=== PATIENT | male | born 1955 | race Caucasian/White ===

== ENCOUNTER 2023-07-20 00:30 | Day surgery (SDC) | payer MEDICARE, BC, SELFPAY ==
[2023-06-22 14:21] VITALS: BMI 25.8
--- NOTE | 2023-07-16 10:01 | SUR.PREOP ---
Patient called regarding upcoming procedure. Reviewed preop instructions, appointment times, and procedure prep.
--- NOTE | 2023-07-19 15:17 | PM.HPGS ---
History of Present Illness History of Present Illness Consent: Risks, benefits, and alternatives have been discussed and questions answered. Patient agrees to proceed with procedure. Chief complaint: neoplasm screening Narrative: Tigre Nieves is a 67 year old male Referred for colon cancer screening Review of Systems Review of Systems: All systems reviewed & are unremarkable except as noted in HPI and below PMFSH Past Medical History Medical History Male erectile dysfunction, unspecified Family History Family History Sibling Patient's brother is in good health Mother Family history of Alzheimer's disease, Onset Age: 76 Patient's mother is Father Family history of diabetes mellitus in first degree relative Family history of coronary artery disease Social History Social History Smoking status: Never smoker Second hand tobacco smoke exposure: No Alcohol intake: current Drinks per week: 4 Alcohol use details: moderate Substance use: never Substance use type: does not use Lack of Transportation: No Lack of Food: Never True Current Housing: I Have Housing Concerned About Future Housing: No Difficulty Paying Gas/Electric Bills: No Difficulty Paying for Meds: No Currently Unemployed: No Education: Bachelor's Degree Difficulty w/ Childcare or Family Care: No Living arrangements: with family Spiritual care concerns: No Meds Home Medications and Allergies Home Medications Medication Instructions Recorded Confirmed Type aspirin 81 mg tablet,delayed 81 mg PO DAILY #30 tabs 01/29/20 07/20/23 Rx release (Adult Aspirin Regimen) multivitamin 1 tablet PO DAILY 02/17/23 07/20/23 History atorvastatin 10 mg tablet See Rx Instructions .Route 06/30/23 07/20/23 Rx .COMPLEX #90 tabs lisinopril 5 mg tablet See Rx Instructions .Route 06/30/23 07/20/23 Rx .COMPLEX #90 tabs sildenafil (pulm.hypertension) 20 See Rx Instructions PO DAILY PRN 07/07/23 07/20/23 Rx mg tablet Sexual Activity #30 tabs Allergies Allergy/AdvReac Type Severity Reaction Status Date / Time NKDA Allergy Unknown Unknown Uncoded 07/20/23 07:43 Exam Const: General: alert Orientation/consciousness: patient oriented x3 Resp: Auscultation: clear to auscultation bilaterally Cardio: Rhythm: regular rhythm GI: GI Palp: Yes Soft to palpation and No Tenderness to palpation present (GI) Neuro: General: patient oriented x3 Assessment and Plan Assessment and plan (1) Screening for colon cancer: Code(s): Z12.11 - Encounter for screening for malignant neoplasm of colon Status: Acute Assessment and Plan: Colonoscopy with possible biopsy or polypectomy or cautery or injection of substances.
[2023-07-20 07:45] VITALS: BP 151/90; PULSE 103; RESP 16; TEMP 36.6; O2SAT 100
[2023-07-20] MEDS: LACTATED RINGERS 1,000 ML 150 ML IV CONT (07:55)
--- NOTE | 2023-07-20 08:36 | P.PNAN_ITS ---
Anes - Initial Pre Proc Eval Procedure: Operation Date: 07/20/23 09:00 Proposed Procedures p Screening Colonoscopy - Carmelo England MD Date/Time: 07/20/23 08:36 Surgeon: Carmelo England MD Pre Op Diagnosis: neoplasm screening Patient Data Age: 67 Gender: M Height: 1.73 m Weight: 74.4 kg Last Vital Signs Temp 97.8 F 07/20/23 07:45 Pulse 103 H 07/20/23 07:45 Resp 16 07/20/23 07:45 BP 151/90 H 07/20/23 07:45 Pulse Ox 100 07/20/23 07:45 O2 Del Method Room Air 07/20/23 07:45 Allergies Allergy/AdvReac Type Severity Reaction Status Date / Time NKDA Allergy Unknown Unknown Uncoded 07/20/23 07:43 Home Medications Medication Instructions Recorded Confirmed Type aspirin 81 mg tablet,delayed 81 mg PO DAILY #30 tabs 01/29/20 07/20/23 Rx release (Adult Aspirin Regimen) multivitamin 1 tablet PO DAILY 02/17/23 07/20/23 History atorvastatin 10 mg tablet See Rx Instructions .Route 06/30/23 07/20/23 Rx .COMPLEX #90 tabs lisinopril 5 mg tablet See Rx Instructions .Route 06/30/23 07/20/23 Rx .COMPLEX #90 tabs sildenafil (pulm.hypertension) 20 See Rx Instructions PO DAILY PRN 07/07/23 07/20/23 Rx mg tablet Sexual Activity #30 tabs Patient hx anesthesia problems: none Family hx anesthesia problems: none Results Review: All pre-operative results and documents have been reviewed as part of the pre- operative evaluation. [facility] Past Medical History Medical History Male erectile dysfunction, unspecified Family History Family History Sibling Patient's brother is in good health Mother Family history of Alzheimer's disease, Onset Age: 76 Patient's mother is Father Family history of diabetes mellitus in first degree relative Family history of coronary artery disease Social History Social History Smoking status: Never smoker Second hand tobacco smoke exposure: No Alcohol intake: current Drinks per week: 4 Alcohol use details: moderate Substance use: never Substance use type: does not use Lack of Transportation: No Lack of Food: Never True Current Housing: I Have Housing Concerned About Future Housing: No Difficulty Paying Gas/Electric Bills: No Difficulty Paying for Meds: No Currently Unemployed: No Education: Bachelor's Degree Difficulty w/ Childcare or Family Care: No Living arrangements: with family Spiritual care concerns: No Anes - Eval Final PreProcedure Day of Procedure 07/20/23 08:36 Patient weight: normal Heart: regular rate and rhythm Lungs: clear to auscultation Neurological: alert and oriented Last oral intake: >/= 8 hours Emergent: no Anesthetic plan: proceed Results Review: All pre-operative results and documents have been reviewed as part of the pre- operative evaluation. Informed Consent: The patient's anesthetic plan and its attendant risks and benefits were discussed with the patient/family/POA. Questions were solicited and answers provided to the satisfaction of the patient/family/POA.
[2023-07-20 09:23] VITALS: BP 103/64; PULSE 63; RESP 18; O2SAT 97
[2023-07-20 09:33] VITALS: BP 118/75; PULSE 65; RESP 14; O2SAT 99
[2023-07-20 09:43] VITALS: BP 130/86; PULSE 72; RESP 16; O2SAT 100
== END 2023-07-20 09:51 | disposition home or self-care (01) ==
PROVIDERS: PCP Family Medicine; Visit Provider Internal Medicine Gastroenterology
PROC: 0DJD8ZZ Inspection of Lower Intestinal Tract, Via Natural or Artificial Opening Endoscopic (ICD-10-PCS; CPT 45378; principal; 2023-07-20 09:00)
DX: Z12.11 Encounter for screening for malignant neoplasm of colon (principal); K62.1 Rectal polyp; Z79.82 Long term (current) use of aspirin
CPT/HCPCS: 45380; 88305; J2704; J7120